=== PATIENT | male | born 2000 | race Caucasian/White ===

== ENCOUNTER 2018-11-27 10:31 | Emergency (ER) | payer SELFPAY ==
--- NOTE | 2018-11-27 11:48 | RAD REPORT ---
EXAM DESCRIPTION: RAD - Ankle Right 3 View - 11/27/2018 11:38 am CLINICAL HISTORY: Trauma, ankle pain COMPARISON: None. FINDINGS: No fracture, dislocation or periosteal reaction. No joint effusion seen. No joint space na rrowing. No soft tissue abnormality. IMPRESSION: Negative right ankle
--- NOTE | 2018-11-27 11:49 | RAD REPORT ---
EXAM DESCRIPTION: RAD - Foot Right 3 View - 11/27/2018 11:38 am CLINICAL HISTORY: PAIN Twisting injury to ankle and foot COMPARISON: None FINDINGS: Right ankle and right foot - multiple projections No acute fracture or dislocation is identified. Mild soft tissue swelling is present about the ankle. No aggressive marrow lesion.
--- NOTE | 2018-11-27 12:12 | ER ---
Nurse's Notes [facility] Name: Ever Sesay Age: 18 yrs Sex: Male : 2000 Arrival Date: 11/27/2018 Time: 10:32 Bed 20 Private MD: None, None Diagnosis: Pain in right foot;Sprain of ankle Presentation: 11/27 10:50 Presenting complaint: Patient states: "I rolled my foot yesterday". pt c/o right foot aa5 pain. 10:50 Transition of care: patient was not received from another setting of care. Onset of aa5 symptoms was November 2018. Risk Assessment: Do you want to hurt yourself or someone else? Patient reports no desire to harm self or others. Initial Sepsis Screen: Does the patient meet any 2 criteria? No. Patient's initial sepsis screen is negative. Does the patient have a suspected source of infection? No. Patient's initial sepsis screen is negative. Care prior to arrival: None. 10:50 Method Of Arrival: Ambulatory aa5 10:50 Acuity: MIRACLE 4 aa5 Historical: - Allergies: 10:50 No Known Allergies; aa5 - PMHx: 10:50 None; aa5 - PSHx: 10:50 hydrocele sx; aa5 - Immunization history:: Adult Immunizations up to date. - Social history:: Smoking status: Patient/guardian denies using tobacco. - Ebola Screening: : No symptoms or risks identified at this time. - Family history:: not pertinent. Screenin:50 Abuse screen: Denies threats or abuse. Denies injuries from another. Nutritional sv screening: No deficits noted. Tuberculosis screening: No symptoms or risk factors identified. Fall Risk None identified. Assessment: 10:59 General: Appears in no apparent distress. comfortable, well groomed, well developed, sv Behavior is calm, cooperative, appropriate for age. Pain: Complains of pain in dorsum of right foot Pain currently is 3 out of 10 on a pain scale. Quality of pain is described as tender, throbbing, Pain began 1 day ago. Is intermittent, episodic, Aggravated by increased activity, weight bearing, Current management - is no interventions. Neuro: Level of Consciousness is awake, alert, obeys commands, Oriented to person, place, time, situation, Moves all extremities. Full function Gait is steady. Cardiovascular: Capillary refill < 3 seconds is brisk in right toes Patient's skin is warm and dry. Pulses are 3+ in right dorsalis pedis artery. Respiratory: Respiratory effort is even, unlabored, Respiratory pattern is regular, symmetrical. Derm: Skin is pink, warm \\T\\ dry. 12:42 Reassessment: Patient appears in no apparent distress at this time. No changes from sv previously documented assessment. Patient and/or family updated on plan of care and expected duration. Pain level reassessed. Patient is alert, oriented x 3, equal unlabored respirations, skin warm/dry/pink. Vital Signs: 10:50 BP 131 / 78; Pulse 61; Resp 16 S; Temp 97.8(TE); Pulse Ox 98% on R/A; Weight 79.38 kg aa5 (R); Height 5 ft. 9 in. (175.26 cm) (R); Pain 3/10; 10:50 Body Mass Index 25.84 (79.38 kg, 175.26 cm) aa5 ED Course: 10:32 Patient arrived in ED. mr 10:32 None, None is Private Physician. mr 10:49 Michael Berman MD is Attending Physician. cristian 10:50 Kaleigh Matthews RN is Primary Nurse. sv 10:50 Patient has correct armband on for positive identification. Bed in low position. sv 10:50 Arm band placed on. sv 10:53 Triage completed. aa5 11:38 X-ray completed. Portable x-ray completed in exam room. Patient tolerated procedure mh1 well. 11:39 Foot Right 3 View XRAY In Process Unspecified. EDMS 11:39 Ankle Right 3 View XRAY In Process Unspecified. EDMS 12:10 Ortho shoe applied to right foot. ice pack applied to right foot. dh3 12:11 Hai Mckoy MD is Referral Physician. cristian 12:41 No provider procedures requiring assistance completed. Patient did not have IV access sv during this emergency room visit. Administered Medications: 12:41 Drug: Motrin 600 mg Route: PO; sv 12:41 Follow up: Response: Medication administered at discharge. sv Outcome: 12:11 Discharge ordered by . cristian 12:41 Discharged to home ambulatory, with orthoshoe sv 12:41 Condition: stable 12:41 Discharge instructions given to patient, Instructed on discharge instructions, follow up and referral plans. no drinking with medication, no driving heavy equipment, medication usage, application of orthoshoe Demonstrated understanding of instructions, follow-up care, medications, Prescriptions given X 2. 12:42 Patient left the ED. sv Signatures: Dispatcher [employer] Kaleigh Angel RN RN sv Anderson, Corey, MD MD cha Rivera, Mary mr Lucretia Lewis 1 Sheryl Evans RN RN [facility] Kamla Yan [facility]
--- NOTE | 2018-11-27 12:12 | EDPHYS ---
Physician Documentation [facility] Name: Ever Sesay Age: 18 yrs Sex: Male : 2000 Arrival Date: 11/27/2018 Time: 10:32 Bed 20 Private MD: None, None ED Physician Michael Berman HPI: 11/27 11:54 This 18 yrs old Male presents to ER via Ambulatory with complaints of Foot cristian Pain. 11:54 The patient presents with an injury, pain. The complaints affect the right foot. cristian Context: The problem was sustained. Onset: The symptoms/episode began/occurred yesterday. Modifying factors: The symptoms are alleviated by elevation of extremity, the symptoms are aggravated by weight bearing. Associated signs and symptoms: The patient has no apparent associated signs or symptoms. Severity of symptoms: At their worst the symptoms were moderate. The patient has not experienced similar symptoms in the past. Historical: - Allergies: 10:50 No Known Allergies; aa5 - PMHx: 10:50 None; aa5 - PSHx: 10:50 hydrocele sx; aa5 - Immunization history:: Adult Immunizations up to date. - Social history:: Smoking status: Patient/guardian denies using tobacco. - Ebola Screening: : No symptoms or risks identified at this time. - Family history:: not pertinent. ROS: 11:54 Constitutional: Negative for fever, chills, and weight loss, Eyes: Negative for injury, cristian pain, redness, and discharge, ENT: Negative for injury, pain, and discharge, Neck: Negative for injury, pain, and swelling, Cardiovascular: Negative for chest pain, palpitations, and edema, Respiratory: Negative for shortness of breath, cough, wheezing, and pleuritic chest pain, Abdomen/GI: Negative for abdominal pain, nausea, vomiting, diarrhea, and constipation, Back: Negative for injury and pain, : Negative for injury, bleeding, discharge, and swelling, Skin: Negative for injury, rash, and discoloration, Neuro: Negative for headache, weakness, numbness, tingling, and seizure, Psych: Negative for depression, anxiety, suicide ideation, homicidal ideation, and hallucinations, Allergy/Immunology: Negative for hives, rash, and allergies, Endocrine: Negative for neck swelling, polydipsia, polyuria, polyphagia, and marked weight changes, Hematologic/Lymphatic: Negative for swollen nodes, abnormal bleeding, and unusual bruising. 11:54 MS/extremity: Positive for decreased range of motion, pain, tenderness, of the dorsum of right foot. Exam: 11:54 Constitutional: This is a well developed, well nourished patient who is awake, alert, cristian and in no acute distress. Head/Face: Normocephalic, atraumatic. Eyes: Pupils equal round and reactive to light, extra-ocular motions intact. Lids and lashes normal. Conjunctiva and sclera are non-icteric and not injected. Cornea within normal limits. Periorbital areas with no swelling, redness, or edema. ENT: Nares patent. No nasal discharge, no septal abnormalities noted. Tympanic membranes are normal and external auditory canals are clear. Oropharynx with no redness, swelling, or masses, exudates, or evidence of obstruction, uvula midline. Mucous membranes moist. Neck: Trachea midline, no thyromegaly or masses palpated, and no cervical lymphadenopathy. Supple, full range of motion without nuchal rigidity, or vertebral point tenderness. No Meningismus. Chest/axilla: Normal chest wall appearance and motion. Nontender with no deformity. No lesions are appreciated. Cardiovascular: Regular rate and rhythm with a normal S1 and S2. No gallops, murmurs, or rubs. Normal PMI, no JVD. No pulse deficits. Respiratory: Lungs have equal breath sounds bilaterally, clear to auscultation and percussion. No rales, rhonchi or wheezes noted. No increased work of breathing, no retractions or nasal flaring. Abdomen/GI: Soft, non-tender, with normal bowel sounds. No distension or tympany. No guarding or rebound. No evidence of tenderness throughout. Back: No spinal tenderness. No costovertebral tenderness. Full range of motion. Skin: Warm, dry with normal turgor. Normal color with no rashes, no lesions, and no evidence of cellulitis. Neuro: Awake and alert, GCS 15, oriented to person, place, time, and situation. Cranial nerves II-XII grossly intact. Motor strength 5/5 in all extremities. Sensory grossly intact. Cerebellar exam normal. Normal gait. Psych: Awake, alert, with orientation to person, place and time. Behavior, mood, and affect are within normal limits. 11:54 Musculoskeletal/extremity: ROM: full active range of motion, full passive range of motion, Circulation is intact in all extremities. Compartment Syndrome exam of affected extremity: is normal. no numbness, no tingling, no sensation deficit, no palor, no weak pulses, Weight bearing: can bear weight with assistance only, limps, DVT Exam: No signs of deep vein thrombosis. negative Homans' sign noted on exam, no appreciated bluish discoloration, no erythema, no increased warmth, pain, swelling, tenderness. Vital Signs: 10:50 BP 131 / 78; Pulse 61; Resp 16 S; Temp 97.8(TE); Pulse Ox 98% on R/A; Weight 79.38 kg aa5 (R); Height 5 ft. 9 in. (175.26 cm) (R); Pain 3/10; 10:50 Body Mass Index 25.84 (79.38 kg, 175.26 cm) aa5 MDM: 10:49 Patient medically screened. [facility] 11:57 Data reviewed: vital signs, nurses notes, radiologic studies, plain films. [facility] 11/27 10:58 Order name: Foot Right 3 View XRAY; Complete Time: 11:58 11/27 10:58 Order name: Ankle Right 3 View XRAY; Complete Time: 11:58 11/27 11:58 Order name: Post-op shoe; Complete Time: 12:21 [facility] 11/27 11:58 Order name: Ice pack; Complete Time: 12:21 [facility] Administered Medications: 12:41 Drug: Motrin 600 mg Route: PO; sv 12:41 Follow up: Response: Medication administered at discharge. sv Disposition: 11/27/18 12:11 Discharged to Home. Impression: Pain in right foot, Sprain of ankle. - Condition is Stable. - Discharge Instructions: Ankle Sprain, Ankle Sprain, [id number], Ankle Pain, Foot Pain. - Prescriptions for Ibuprofen 600 mg Oral Tablet - take 1 tablet by ORAL route every 8 hours As needed take with food; 21 tablet. Tylenol- Codeine #3 300-30 mg Oral Tablet - take 2 tablets by ORAL route every 6 hours As needed; 24 tablet. - Medication Reconciliation Form, Thank You Letter, Antibiotic Education, Prescription Opioid Use, Work release form form. - Follow up: Hai Mckoy; When: 2 - 3 days; Reason: Recheck today's complaints, Continuance of care, Re-evaluation by your physician. - Problem is new. - Symptoms have improved. Signatures: Dispatcher [employer] Kaleigh Angel RN RN Michael Gordon MD MD cha Calderon, Audri RN RN aa5 Corrections: (The following items were deleted from the chart) 12:42 12:11 11/27/2018 12:11 Discharged to Home. Impression: Pain in right foot; Sprain of sv ankle. Condition is Stable. Discharge Instructions: Ankle Sprain, Ankle Sprain, [id number], Ankle Pain, Foot Pain. Prescriptions for Ibuprofen 600 mg Oral Tablet - take 1 tablet by ORAL route every 8 hours As needed take with food; 21 tablet, Tylenol-Codeine #3 300-30 mg Oral Tablet - take 2 tablets by ORAL route every 6 hours As needed; 24 tablet. and Forms are Medication Reconciliation Form, Thank You Letter, Antibiotic Education, Prescription Opioid Use. Follow up: Hai Mckoy; When: 2 - 3 days; Reason: Recheck today's complaints, Continuance of care, Re-evaluation by your physician. Problem is new. Symptoms have improved. cristian
[2018-11-27] MEDS ORDERED: IBUPROFEN 200 MG TAB PO ONE (12:14)
[2018-11-27] MEDS ORDERED: IBUPROFEN 400 MG TAB ONE (12:14)
[2018-11-27 12:46] VITALS: BP 131/78; TEMP 97.8; O2SAT 98
== END 2018-11-27 12:42 | disposition home or self-care (01) ==
LOC: ER 10:31
DX: S93.401A Sprain of unspecified ligament of right ankle, initial encounter (principal); X58.XXXA Exposure to other specified factors, initial encounter; Y93.9 Activity, unspecified; Y92.9 Unspecified place or not applicable
CPT/HCPCS: 99284

== ENCOUNTER 2019-07-06 12:55 | Emergency (ER) | payer SELFPAY ==
--- NOTE | 2019-07-06 14:06 | ER ---
Nurse's Notes [facility] Name: Ever Sesay Age: 19 yrs Sex: Male : 2000 Arrival Date: 07/06/2019 Time: 12:57 Bed 11 Private MD: Diagnosis: Influenza due to identified novel influenza A virus Presentation: 07/06 13:14 Presenting complaint: Nausea, abdominal cramping, fever, sore throat, body aches, hb chills, and headache x 2 days. On amoxicillin day 5 for mouth infection. Transition of care: patient was not received from another setting of care. Onset of symptoms was July 05, 2019. Risk Assessment: Do you want to hurt yourself or someone else? Patient reports no desire to harm self or others. Initial Sepsis Screen: Does the patient meet any 2 criteria? No. Patient's initial sepsis screen is negative. Does the patient have a suspected source of infection? No. Patient's initial sepsis screen is negative. Care prior to arrival: None. 13:14 Method Of Arrival: Ambulatory hb 13:14 Acuity: MIRACLE 4 hb Historical: - Allergies: 13:16 No Known Allergies; hb - Home Meds: 13:16 None [Active]; hb - PMHx: 13:16 None; hb - PSHx: 13:16 hydrocele sx; hb - Immunization history:: Adult Immunizations up to date. - Social history:: Smoking status: Patient/guardian denies using tobacco. - Ebola Screening: : No symptoms or risks identified at this time. Screenin:25 Abuse screen: Denies threats or abuse. Nutritional screening: No deficits noted. kl Tuberculosis screening: No symptoms or risk factors identified. Fall Risk None identified. Assessment: 14:23 General: Appears uncomfortable, well developed, well nourished, Behavior is calm, kl cooperative, Reports chills for fever for 1-2 days, feeling ill for 1-2 days. Pain: Complains of pain in generalized aches. Neuro: No deficits noted. Cardiovascular: No deficits noted. Respiratory: No deficits noted. Respiratory: Airway is patent Trachea midline Respiratory effort is even, unlabored, Respiratory pattern is regular. GI: No deficits noted. GI: No signs and/or symptoms were reported involving the gastrointestinal system. : No deficits noted. No signs and/or symptoms were reported regarding the genitourinary system. EENT: Reports difficulty swallowing since Tuesday. Derm: No deficits noted. Musculoskeletal: No deficits noted. Vital Signs: 13:13 BP 110 / 83; Pulse 88; Resp 16; Temp 98.9; Pulse Ox 98% ; Weight 79.38 kg; Height 5 ft. hb 9 in. (175.26 cm); Pain 6/10; 14:25 Pulse 82; Resp 16; Temp 99.9; Pain 4/10; kl 13:13 Body Mass Index 25.84 (79.38 kg, 175.26 cm) hb ED Course: 12:57 Patient arrived in ED. as 13:15 Triage completed. hb 13:16 Arm band placed on. hb 13:25 Pat[facility] Cheek F[facility]-C [facility]. kb 13:25 Michael Berman MD is Attending Physician. kb 14:27 Patient has correct armband on for positive identification. kl 14:27 No provider procedures requiring assistance completed. Patient did not have IV access kl during this emergency room visit. Administered Medications: 14:05 Drug: Tamiflu 75 mg Route: PO; kl 14:25 Follow up: Pulse 82 bpm; Resp 16 bpm; Temp 99.9; Pain 4/10 Adult kl Outcome: 14:05 Discharge ordered by MD. kb 14:26 Discharged to home ambulatory. kl 14:26 Condition: good 14:26 Discharge instructions given to patient, Instructed on discharge instructions, follow up and referral plans. infectiom control Demonstrated understanding of instructions, follow-up care, medications, Prescriptions given X 1. 14:28 Patient left the ED. kl Signatures: Paty Cheek FNP-C FNP-Ckb Lewis, Kimberly RN RN Torie Spangler as Flora Rangel RN RN Corrections: (The following items were deleted from the chart) 13:17 13:14 Presenting complaint: Nausea, abdominal cramping, fever, sore throat, body aches, hb chills, and headache x 2 days hb
--- NOTE | 2019-07-06 14:06 | EDPHYS ---
Physician Documentation [facility] Name: Ever Sesay Age: 19 yrs Sex: Male : 2000 Arrival Date: 07/06/2019 Time: 12:57 Bed 11 Private MD: ED Physician Michael Berman HPI: 07/06 14:22 This 19 yrs old Male presents to ER via Ambulatory with complaints of Fever, kb Cough. 14:22 The patient reports fever, that was measured at 103 degrees Fahrenheit, with an kb emergency department temperature of 98.9 degrees Fahrenheit. Onset: The symptoms/episode began/occurred yesterday. Modifying factors: there are no obvious modifying factors. Associated signs and symptoms: Pertinent positives: cough. Severity of symptoms: At their worst the symptoms were moderate in the emergency department the symptoms are unchanged. The patient has not experienced similar symptoms in the past. The patient has not recently seen a physician. Pt reports he woke up yesterday with fever of 103 and body aches. Historical: - Allergies: 13:16 No Known Allergies; hb - Home Meds: 13:16 None [Active]; hb - PMHx: 13:16 None; hb - PSHx: 13:16 hydrocele sx; hb - Immunization history:: Adult Immunizations up to date. - Social history:: Smoking status: Patient/guardian denies using tobacco. - Ebola Screening: : No symptoms or risks identified at this time. ROS: 14:23 ENT: Negative for injury, pain, and discharge, Neck: Negative for injury, pain, and kb swelling, Cardiovascular: Negative for chest pain, palpitations, and edema, Abdomen/GI: Negative for abdominal pain, nausea, vomiting, diarrhea, and constipation, Back: Negative for injury and pain, : Negative for injury, bleeding, discharge, and swelling, MS/Extremity: Negative for injury and deformity, Skin: Negative for injury, rash, and discoloration, Neuro: Negative for headache, weakness, numbness, tingling, and seizure. 14:23 Constitutional: Positive for body aches, chills, fever, malaise. 14:23 Respiratory: Positive for cough. Exam: 14:23 Constitutional: This is a well developed, well nourished patient who is awake, alert, kb and in no acute distress. Head/Face: Normocephalic, atraumatic. ENT: Nares patent. No nasal discharge, no septal abnormalities noted. Tympanic membranes are normal and external auditory canals are clear. Oropharynx with no redness, swelling, or masses, exudates, or evidence of obstruction, uvula midline. Mucous membranes moist. Neck: Trachea midline, no thyromegaly or masses palpated, and no cervical lymphadenopathy. Supple, full range of motion without nuchal rigidity, or vertebral point tenderness. No Meningismus. Chest/axilla: Normal chest wall appearance and motion. Nontender with no deformity. No lesions are appreciated. Cardiovascular: Regular rate and rhythm with a normal S1 and S2. No gallops, murmurs, or rubs. Normal PMI, no JVD. No pulse deficits. Respiratory: Lungs have equal breath sounds bilaterally, clear to auscultation and percussion. No rales, rhonchi or wheezes noted. No increased work of breathing, no retractions or nasal flaring. Abdomen/GI: Soft, non-tender, with normal bowel sounds. No distension or tympany. No guarding or rebound. No evidence of tenderness throughout. Skin: Warm, dry with normal turgor. Normal color with no rashes, no lesions, and no evidence of cellulitis. MS/ Extremity: Pulses equal, no cyanosis. Neurovascular intact. Full, normal range of motion. Neuro: Awake and alert, GCS 15, oriented to person, place, time, and situation. Cranial nerves II-XII grossly intact. Motor strength 5/5 in all extremities. Sensory grossly intact. Cerebellar exam normal. Normal gait. Vital Signs: 13:13 BP 110 / 83; Pulse 88; Resp 16; Temp 98.9; Pulse Ox 98% ; Weight 79.38 kg; Height 5 ft. hb 9 in. (175.26 cm); Pain 6/10; 14:25 Pulse 82; Resp 16; Temp 99.9; Pain 4/10; kl 13:13 Body Mass Index 25.84 (79.38 kg, 175.26 cm) hb MDM: 13:53 Patient medically screened. kb 14:21 Data reviewed: vital signs, nurses notes. Data interpreted: Pulse oximetry: on room air kb is 98 %. Interpretation: normal. Counseling: I had a detailed discussion with the patient and/or guardian regarding: the historical points, exam findings, and any diagnostic results supporting the discharge/admit diagnosis, lab results, the need for outpatient follow up, a family practitioner, to return to the emergency department if symptoms worsen or persist or if there are any questions or concerns that arise at home. 07/06 13:16 Order name: Flu; Complete Time: 13:51 hb 07/06 13:16 Order name: Strep; Complete Time: 13:52 hb 07/06 13:54 Order name: Throat Culture EDMS Administered Medications: 14:05 Drug: Tamiflu 75 mg Route: PO; kl 14:25 Follow up: Pulse 82 bpm; Resp 16 bpm; Temp 99.9; Pain 4/10 Adult kl Disposition: 07/06/19 14:05 Discharged to Home. Impression: Influenza due to identified novel influenza A virus. - Condition is Stable. - Discharge Instructions: Influenza, Adult, [id number], Viral Respiratory Infection, [id number]. - Prescriptions for Tamiflu 75 mg Oral Capsule - take 1 capsule by ORAL route every 12 hours for 5 days; 10 capsule. - Work release form, Medication Reconciliation Form, Thank You Letter, Antibiotic Education, Prescription Opioid Use form. - Follow up: Emergency Department; When: As needed; Reason: Worsening of condition. Follow up: Private Physician; When: 2 - 3 days; Reason: Recheck today's complaints, Continuance of care, Re-evaluation by your physician. Addendum: 07/08/2019 07:52 Co-signature as Attending Physician, Michael Berman MD I agree with the assessment and c perez plan of care. Signatures: Dispatcher [employer] Paty Eugene, MUNIRA-Ramón LOMBARDO-Jocelynn Jade RN RN kl Anderson, Corey, MD MD cha Baxter, Heather, RN RN Corrections: (The following items were deleted from the chart) 07/06 14:28 14:05 07/06/2019 14:05 Discharged to Home. Impression: Influenza due to identified kl novel influenza A virus. Condition is Stable. Forms are Medication Reconciliation Form, Thank You Letter, Antibiotic Education, Prescription Opioid Use. Follow up: Emergency Department; When: As needed; Reason: Worsening of condition. Follow up: Private Physician; When: 2 - 3 days; Reason: Recheck today's complaints, Continuance of care, Re-evaluation by your physician. kb
[2019-07-06] MEDS ORDERED: OSELTAMIVIR 75 MG CAP ONE (14:11)
[2019-07-06 14:37] VITALS: BP 110/83
[2019-07-06 14:39] VITALS: TEMP 99.9
[2019-07-06 14:45] VITALS: O2SAT 100
== END 2019-07-06 14:28 | disposition home or self-care (01) ==
LOC: ER 12:55
DX: J09.X2 Influenza due to identified novel influenza A virus with other respiratory manifestations (principal)
CPT/HCPCS: 87070; 87081; 87804; 99283

== ENCOUNTER 2019-11-09 17:54 | Emergency (ER) | payer BC, SELFPAY ==
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
[2019-11-09 19:07] VITALS: BP 137/79; TEMP 98.2; O2SAT 98
== END 2019-11-09 19:01 | disposition home or self-care (01) ==
LOC: ER 17:54
DX: R04.0 Epistaxis (principal); F17.210 Nicotine dependence, cigarettes, uncomplicated
CPT/HCPCS: 99283

== ENCOUNTER 2019-11-14 13:49 | Emergency (ER) | payer BC ==
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
[2019-11-15 21:23] VITALS: BP 116/76; TEMP 98.4; O2SAT 98
== END 2019-11-14 15:56 | disposition home or self-care (01) ==
LOC: ER 13:49
DX: R04.0 Epistaxis (principal)
CPT/HCPCS: 99281

== ENCOUNTER 2019-12-20 19:55 | Emergency (ER) | payer BC, OTHER ==
--- NOTE | 2019-12-20 21:21 | EDPHYS ---
Physician Documentation [facility] Name: Ever Sesay Age: 19 yrs Sex: Male : 2000 Arrival Date: 12/20/2019 Time: 19:57 Bed 28 Private MD: ED Physician Michael Berman HPI: 12/19 21:13 This 19 yrs old Male presents to ER via Ambulatory with complaints of Cough, jr8 Runny Nose. 21:13 The patient or guardian reports cough, that is intermittent, with no sputum. Onset: The jr8 symptoms/episode began/occurred gradually, 2 day(s) ago. Severity of symptoms: At their worst the symptoms were mild, in the emergency department the symptoms are unchanged. Modifying factors: The symptoms are alleviated by nothing, the symptoms are aggravated by nothing. Associated signs and symptoms: The patient has no apparent associated signs or symptoms. The patient has not experienced similar symptoms in the past. The patient has not recently seen a physician. Stated that his aunt recently had to be tested by health department for COVID-19. Stated that he thought she had tested positive. Stated that he started to have mild runny nose and cough. Denies fevers or other symptoms . Historical: - Allergies: 20:02 No Known Allergies; ll1 - PMHx: 20:02 migrianes; ll1 - PSHx: 20:39 hydrocele; sg - Immunization history:: Flu vaccine is not up to date. - Social history:: Smoking status: unknown. ROS: 21:13 Eyes: Negative for injury, pain, redness, and discharge, Neck: Negative for injury, jr8 pain, and swelling, Cardiovascular: Negative for chest pain, palpitations, and edema, Abdomen/GI: Negative for abdominal pain, nausea, vomiting, diarrhea, and constipation, Back: Negative for injury and pain, MS/Extremity: Negative for injury and deformity, Skin: Negative for injury, rash, and discoloration, Neuro: Negative for headache, weakness, numbness, tingling, and seizure. 21:13 ENT: Positive for rhinorrhea. 21:13 Respiratory: Positive for cough, Negative for dyspnea on exertion, shortness of breath, sputum production, wheezing. Exam: 21:13 Constitutional: This is a well developed, well nourished patient who is awake, alert, jr8 and in no acute distress. Eyes: Pupils equal round and reactive to light, extra-ocular motions intact. Lids and lashes normal. Conjunctiva and sclera are non-icteric and not injected. Cornea within normal limits. Periorbital areas with no swelling, redness, or edema. ENT: Nares patent. No nasal discharge, no septal abnormalities noted. Tympanic membranes are normal and external auditory canals are clear. Oropharynx with no redness, swelling, or masses, exudates, or evidence of obstruction, uvula midline. Mucous membranes moist. Neck: Trachea midline, no thyromegaly or masses palpated, and no cervical lymphadenopathy. Supple, full range of motion without nuchal rigidity, or vertebral point tenderness. No Meningismus. Cardiovascular: Regular rate and rhythm with a normal S1 and S2. No gallops, murmurs, or rubs. Normal PMI, no JVD. No pulse deficits. Respiratory: Lungs have equal breath sounds bilaterally, clear to auscultation and percussion. No rales, rhonchi or wheezes noted. No increased work of breathing, no retractions or nasal flaring. Abdomen/GI: Soft, non-tender, with normal bowel sounds. No distension or tympany. No guarding or rebound. No evidence of tenderness throughout. Back: No spinal tenderness. No costovertebral tenderness. Full range of motion. Skin: Warm, dry with normal turgor. Normal color with no rashes, no lesions, and no evidence of cellulitis. MS/ Extremity: Pulses equal, no cyanosis. Neurovascular intact. Full, normal range of motion. Neuro: Awake and alert, GCS 15, oriented to person, place, time, and situation. Cranial nerves II-XII grossly intact. Motor strength 5/5 in all extremities. Sensory grossly intact. Cerebellar exam normal. Normal gait. Vital Signs: 20:00 BP 122 / 77; Pulse 65; Resp 18; Temp 98.1; Pulse Ox 98% ; Weight 86.18 kg; Height 5 ft. ll1 9 in. (175.26 cm); Pain 0/10; 21:10 BP 119 / 70; Pulse 62; Resp 18; Pulse Ox 100% ; rr5 21:45 BP 121 / 75; Pulse 60; Resp 17; Temp 97.8; Pulse Ox 99% on R/A; rr5 20:00 Body Mass Index 28.06 (86.18 kg, 175.26 cm) ll1 MDM: 20:06 Patient medically screened. jr8 21:13 Data reviewed: vital signs, nurses notes, lab test result(s), Flu: negative strep jr8 negative. Data interpreted: Pulse oximetry: on room air is 98 %. Interpretation: normal. Counseling: I had a detailed discussion with the patient and/or guardian regarding: the historical points, exam findings, and any diagnostic results supporting the discharge/admit diagnosis, lab results, the need for outpatient follow up, a family practitioner, to return to the emergency department if symptoms worsen or persist or if there are any questions or concerns that arise at home. ED course: Discussed with patient hat we will swab him for COVID-19. That he must remain in quarantine for 14 days or until proven with results that he is negative. If at any point and time he were to acutely worsen to come back to ED for further evaluation. Patient understands and will self quarantine. . 12/19 20:06 Order name: Strep; Complete Time: 21:13 jr8 12/19 20:06 Order name: Influenza Screen (a \T\ B); Complete Time: 21:13 jr8 12/19 20:56 Order name: Throat Culture EDND 12/19 21:13 Order name: Misc. Lab Test jr8 Administered Medications: No medications were administered Disposition: 12/20 12:04 Co-signature as Attending Physician, Michael Berman MD I agree with the assessment and cristian plan of care. Disposition: 12/20/19 21:20 Discharged to Home. Impression: Cough, Acute upper respiratory infection, unspecified. - Condition is Stable. - Discharge Instructions: Upper Respiratory Infection, Adult, Cough, Adult. - Medication Reconciliation Form, Thank You Letter, Antibiotic Education, Prescription Opioid Use, Work release form form. - Follow up: Private Physician; When: As needed; Reason: Recheck today's complaints, Continuance of care, Re-evaluation by your physician. - Problem is new. - Symptoms are unchanged. Signatures: Dispatcher [employer] EDND Hai Ely RN RN sg Anderson, Corey, MD MD cha Roszak, Josh, PA PA jr8 Colton Ray RN RN rr5 Chen Graf RN RN ll1 Corrections: (The following items were deleted from the chart) 12/19 21:20 21:20 12/20/2019 21:20 Discharged to Home. Impression: Cough. Condition is Stable. jr8 Forms are Medication Reconciliation Form, Thank You Letter, Antibiotic Education, Prescription Opioid Use. Follow up: Private Physician; When: As needed; Reason: Recheck today's complaints, Continuance of care, Re-evaluation by your physician. Problem is new. Symptoms are unchanged. jr8 21:21 21:13 ED course: Discussed with patient hat we will swab him for COVID-19. That he must jr8 remain in quarantine for 14 days or until proven with results that he is negative. Patient understands and will self quarantine . jr8 21:49 21:20 12/20/2019 21:20 Discharged to Home. Impression: Cough; Acute upper respiratory rr5 infection, unspecified. Condition is Stable. Discharge Instructions: Cough, Adult. Forms are Medication Reconciliation Form, Thank You Letter, Antibiotic Education, Prescription Opioid Use. Follow up: Private Physician; When: As needed; Reason: Recheck today's complaints, Continuance of care, Re-evaluation by your physician. Problem is new. Symptoms are unchanged. jr8
--- NOTE | 2019-12-20 21:21 | ER ---
Nurse's Notes [facility] Name: Ever Sesay Age: 19 yrs Sex: Male : 2000 Arrival Date: 12/20/2019 Time: 19:57 Bed 28 Private MD: Diagnosis: Cough;Acute upper respiratory infection, unspecified Presentation: 12/19 20:00 Chief complaint: Patient states: Slight cough and sneezing for 3 days. No known fever. ll1 Aunt diagnosed with COVID19. Work wants clearance before he goes back. Coronavirus screen: The patient has NOT traveled to a country currently being monitored by the CDC within the last 14 days. Ebola Screen: Patient denies travel to an Ebola-affected area in the 21 days before illness onset. Risk Assessment: Do you want to hurt yourself or someone else? Patient reports no desire to harm self or others. 20:00 Method Of Arrival: Ambulatory ll1 20:00 Acuity: MIRACLE 4 ll1 20:31 Initial Sepsis Screen: Does the patient meet any 2 criteria? No. Patient's initial rr5 sepsis screen is negative. Does the patient have a suspected source of infection? Yes: Productive cough/pneumonia. Onset of symptoms was December 17, 2019. Historical: - Allergies: 20:02 No Known Allergies; ll1 - PMHx: 20:02 migrianes; ll1 - PSHx: 20:39 hydrocele; sg - Immunization history:: Flu vaccine is not up to date. - Social history:: Smoking status: unknown. Screenin:26 Abuse screen: Denies threats or abuse. Denies injuries from another. Nutritional rr5 screening: No deficits noted. Tuberculosis screening: No symptoms or risk factors identified. Fall Risk None identified. Total De La Paz Fall Scale indicates No Risk (0-24 pts). Assessment: 20:10 General: Appears in no apparent distress. comfortable, Behavior is calm, cooperative, rr5 anxious. Pain: Denies pain. Neuro: Level of Consciousness is awake, alert, obeys commands, Oriented to person, place, time, situation, Appropriate for age. Cardiovascular: Capillary refill < 3 seconds Patient's skin is warm and dry. Respiratory: Reports cough that is allergic Airway is patent Respiratory effort is even, unlabored, Respiratory pattern is regular, symmetrical, Breath sounds are clear bilaterally. GI: No signs and/or symptoms were reported involving the gastrointestinal system. : No signs and/or symptoms were reported regarding the genitourinary system. EENT: Derm: Skin is intact, is healthy with good turgor, Skin temperature is warm. Musculoskeletal: Circulation, motion, and sensation intact. Capillary refill < 3 seconds. 20:30 Reassessment: Slime Woodard RN notified of pt and situation, Infection Control Nurse sp Callejas RN notified, [facility] notified a Reyes Jean has been in contact with nc, instructed that he will contact the [facility] for a PUI case number and to wait for a call back. 21:04 Reassessment: Robby RUFFIN notified of instructions at this time, pt awaiting new orders, sg will continue to monitor. 22:00 Reassessment: Reyes Jean called back with a PUI case number of [id number], sp Callejas RN with infection control notified, outside lab for specimen handling notified of case number, PUI form has been filled out appropriatley and placed on the patients chart at this time. Vital Signs: 20:00 BP 122 / 77; Pulse 65; Resp 18; Temp 98.1; Pulse Ox 98% ; Weight 86.18 kg; Height 5 ft. ll1 9 in. (175.26 cm); Pain 0/10; 21:10 BP 119 / 70; Pulse 62; Resp 18; Pulse Ox 100% ; rr5 21:45 BP 121 / 75; Pulse 60; Resp 17; Temp 97.8; Pulse Ox 99% on R/A; rr5 20:00 Body Mass Index 28.06 (86.18 kg, 175.26 cm) ll1 ED Course: 19:57 Patient arrived in ED. cl3 20:02 Triage completed. ll1 20:02 Arm band placed on Patient placed in an exam room. ll1 20:03 Chen Graf, MAGEN is Primary Nurse. ll1 20:06 Robby Peacock PA is PHCP. jr8 20:06 Michael Berman MD is Attending Physician. jr8 20:09 Colton Ray, MAGEN is Primary Nurse. rr5 20:24 Flu and/or RSV swab sent to lab. Strep swab sent to lab. rr5 20:26 Patient has correct armband on for positive identification. Bed in low position. Call rr5 light in reach. Pulse ox on. NIBP on. 21:45 No provider procedures requiring assistance completed. covid 19 swab sent. Patient did rr5 not have IV access during this emergency room visit. Administered Medications: No medications were administered Outcome: 21:20 Discharge ordered by . gisella 21:47 Discharged to home ambulatory. rr5 21:47 Condition: stable 21:47 Discharge instructions given to patient, Instructed on discharge instructions, follow up and referral plans. self quarantine for 14 days or when the test result negative Demonstrated understanding of instructions, follow-up care. 21:49 Patient left the ED. rr5 Addendum: 12/22/2019 10:09 Addendum: Other Pt test 2019-nCoV wildlife officer-PCR results received from [place] [address] Department. Attempted to contact pt to give results. Pt did not answer phone. I left a message for pt to call me back. 11:00 Addendum: Other pt notified of negative COVID-19 results. [facility] Signatures: Unique Kruse, RN RN dm5 Hai Ely RN RN sg Robby Peacock PA PA jr8 Colton Ray RN RN rr5 Norm Graf cl3 Chen Graf, RN RN ll1 Corrections: (The following items were deleted from the chart) 12/19 21:10 21:04 Reassessment: Slime Woodard RN notified of pt and situation, Infection Control Nurse Britta US notified, [facility] notified a Reyes Jean has been in contact with me, instructed that he will contact the [facility] health dept for a PUI case number and to wait for a call back. sg
[2019-12-20 22:19] VITALS: BP 121/75; TEMP 97.8; O2SAT 99
== END 2019-12-20 21:49 | disposition home or self-care (01) ==
LOC: ER 19:55
DX: J06.9 Acute upper respiratory infection, unspecified (principal); Z20.828 Contact with and (suspected) exposure to other viral communicable diseases
CPT/HCPCS: 87070; 87081; 87804 ×2; 99283; U0001

== ENCOUNTER 2022-11-08 01:35 | Emergency (ER) | payer BC ==
--- OUTSIDE RECORDS SUMMARY | 2022-11-08 01:39 | XMS REPORT | Continuity of Care Document ---
:2000 Author Organization [facility] t Address [address] [place] [address] Dr. Val[address]. [address] [place] [address] Care Team Providers Name Role Phone Pcp, Patient Does Not Have A Primary Care Physician [id number] L_[place] Attending Clinician Unavailable Shield Attending Clinician Unavailable Doctor Unassigned, [place] Attending Clinician Unavailable Fransisco Baig Attending Clinician Yessy Anton RN Attending Clinician Unavailable Lab, Adc Fam Pob I Attending Clinician Unavailable Isha Alanis Attending Clinician ISHA GARSIA Attending Clinician Unavailable Lab, Pcp Covid Attending Clinician Unavailable L_[place] Admitting Clinician Unavailable Shield Admitting Clinician Unavailable Payers Payer Name Policy Type Policy Number Effective Date Expiration Date S dionte [facility] [place] [facility] [id number] 2019 00:00:00 [facility] [id number] [place] Problems Condition Condition Condition Status Onset Resolution Last Treating Co mments Source Name Details Category Date Date Treatment Clinician Date No known No known Disease Unive rs active active ity of problems problems [facility] Allergies, Adverse Reactions, Alerts Allergy Allergy Status Severity Reaction(s) Onset Inactive Treating Comm ents Source Name Type Date Date Clinician NO KNOWN Drug Active Univers ALLERGIE Class ity of S [facility] Social History Social Habit Start Date Stop Date Quantity Comments Source History of tobacco Chews Tobacco Uni versity of use [facility] Exposure to Not sure University SARS-CoV-2 (event) [facility] Alcohol intake 2021-01-11 2021-01-11 0 /d University of 00:00:00 00:00:00 [facility] Cigarettes smoked 2015-10-30 2015-10-30 Univers ity of current (pack per 00:00:00 00:00:00 [facility] ) - Reported Branch Cigarette 2015-10-30 2015-10-30 University of pack-years 00:00:00 00:00:00 [facility] Tobacco use and 2015-10-30 2015-10-30 Current user Univers ity of exposure 00:00:00 00:00:00 [facility] Sex Assigned At [birth year] Universit y of 00:00:00 00:00:00 [facility] Smoking Status Start Date Stop Date Source Never Smoker [facility] Former smoker 2015-10-30 00:00:00 2015-10-30 00:00:00 [facility] Medications Ordered Filled Start Stop Current Ordering Indication Dosage Frequency Signature Comments Components Source Medication Medication Date Date Medication? Clinician (SIG) Name Name ketorolac No 60mg 60 mg, Unive rs (TORADOL) 01-12 Intramuscu ity of injection 03:15: 03:15 lar, ONCE, [place] 60 mg 00 :00 1 dose, [facility] [place] 01/11/21 at 2215, EMILEE
Fa culty member approving Restricted medication : Fransisco ARTIS naproxen Yes [id number] 500mg Take 1 Univers (NAPROSYN) 4-11 [id number] tablet by it y of 500 mg 00:00: mouth 2 [place] tablet 00 (two) Medical times Branch daily with meals. acetaminoph Yes [id number] 1{tbl} Take 1 Un antoinette en-codeine 4-11 tablet by ity of (TYLENOL-CO 00:00: mouth [place] DEINE #3) 00 every 4 Medical 300-30 mg (four) Branch tablet hours as needed for Pain (scale 7-10). Indication s: acute pain naproxen Yes [id number] 500mg Take 1 Univers (NAPROSYN) 4-11 [id number] tablet by it y of 500 mg 00:00: mouth 2 [place] tablet 00 (two) Medical times Branch daily with meals. acetaminoph Yes 4647 1{tbl} Take 1 Un antoinette en-codeine 4-11 tablet by ity of (TYLENOL-CO 00:00: mouth [place] DEINE #3) 00 every 4 Medical 300-30 mg (four) Branch tablet hours as needed for Pain (scale 7-10). Indication s: acute pain No known No [facility] No [facility] No known No [facility] No known No [facility] No known No [facility] No known No Univers [facility] No known No [facility] No known No Univers medications [facility] Vital Signs Vital Name Observation Time Observation Value Comments Source Body Weight 2022-03-22 00:00:00 2857.6 [oz_av] [facility] BP Diastolic 2022-03-22 00:00:00 80 mm[Hg] [facility] Height 2022-03-22 00:00:00 69 [in_i] [facility] BMI (Body Mass 2022-03-22 00:00:00 26.4 kg/m2 [facility] Group BP Systolic 2022-03-22 00:00:00 120 mm[Hg] [facility] Body weight 2021-01-12 02:07:00 77.111 kg General acute hospital Systolic blood 2021-01-12 01:59:00 157 mm[Hg] Univer sity [facility] Diastolic blood 2021-01-12 01:59:00 80 mm[facility]Hg[facility] 2021-01-12 01:59:00 74 /min General acute hospital Body temperature 2021-01-12 01:59:00 37.11 Gianna [facility] Respiratory rate 2021-01-12 01:59:00 20 /min [facility] Oxygen saturation in 2021-01-12 01:59:00 98 /min [facility] Arterial blood by [facility] Pulse oximetry Branch Procedures Procedure Date / Time Performing Clinician Source Performed AUTHORIZATION FOR 2022-03-10 05:01:00 Doctor Unassigned, [facility] Name Medical Branch XR ANKLE 3+ VW LEFT 2021-01-12 02:25:54 Fransisco Artis [facility] ty of [facility] XR FOOT 3+ VW LEFT 2021-01-12 02:25:54 Fransisco Artis [facility] y [facility] CONSENT/REFUSAL FOR 2021-01-12 01:50:49 Doctor Unassigned, No [facility] NOTICE OF PRIVACY 2021-01-12 01:50:39 Doctor Unassigned, No Univ [facility] PATIENT QUESTIONNAIRE 2020-06-11 05:01:00 Doctor Unassigned, No [facility] Encounters Start End Encounter Admission Attending Care Care Encounter Source Date/Time Date/Time Type Type Clinicians Facility Department ID 2021-08-02 Emergency [facility] [id number] Univers 12:07:06 ity of [facility] 2022-10-19 2022-10-19 Outpatient L_Pena [facility] [id number] [place] 00:00:00 00:00:00 0117 Commun i ty [facility] 2022-10-05 2022-10-05 Outpatient SFA SFA [id number] [place] 15:58:52 15:58:52 [id number] [place] 2022-03-22 2022-03-22 Outpatient Shield [facility] [id number] [place] 09:56:00 09:56:00 0620 Medical Group 2022-03-22 2022-03-22 Abby [facility]G [place] - [id number] M atagor 00:00:00 00:00:00 [facility] 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 2022-03-10 2022-03-10 Orders Doctor MALAVE [id number] Univers 00:00:00 00:00:00 Only UnassignedMARIO [id number] [facility] [id number] Alexis as [phone] [address] 2021-01-11 2021-01-11 Emergency Fransisco Artis [facility] [id number] Univers 21:01:00 22:50:00 Jovanna Caballero [id number] i ty of [place] [id number] [place] [phone] [facility] 084 [place] 2020-06-11 2020-06-11 Rosalva MALAVE [id number] Univers 00:00:00 00:00:00 Only Unassigned, MARIO [id number] ity of [place] [facility] [id number] Alexis as [phone] [facility] 009 [place] 2020-06-05 2020-06-05 Letter ANANDA Anton [id number] Univers 00:00:00 00:00:00 (Out) Yessy MARTIN [id number] it y of [facility] [id number] Alexis as [phone] [facility] 019 [place] 2020-06-03 2020-06-03 Laboratory Lab, Adc [facility] Po I [facility] 1.2. [id number] [id number] Univers 14:00:17 14:20:17 Only Marybeth [facility] [id number] ity of [place] [id number] Alexis as Professio [phone] Ak dical nal [address] [place] [address] Office [address] 2020-06-03 2020-06-03 Outpatient R ARSLAN, [facility] [id number] Univers 14:00:00 14:00:00 ISHA ity of [facility] 2020-05-20 2020-05-20 ANANDA Voss [id number] Univers 00:00:00 00:00:00 (Out) Yessy MARTIN [id number] it y of HOSPITAL [id number] Alexis as [phone] [address] 2020-05-19 2020-05-19 Laboratory Lab, Adc Fam Pob I [facility] 1.2. 840.114 [id number] Univers 09:37:31 09:57:31 Only Arslan, Isha Health [id number] ity of [place] [id number] Alexis as Professio [phone] Ak dical nal 044 [address] 2020-05-19 2020-05-19 Outpatient R ARSLAN [facility] [id number] Univers 09:40:00 09:40:00 ISHA ity of [facility] 2020-05-19 2020-05-19 Letter Lab, Pcp [facility] [id number] Univers 00:00:00 00:00:00 (Out) Covid Health [id number] it y of [place] [id number] Alexis as Professio [phone] Ak dical nal [address] [place] [address] 2020-04-14 2020-04-14 Laboratory Lab, Adc Fam Pob I [facility] 1.2. 840.114 [id number] Univers 14:18:11 14:38:11 Only Isha Garsia Health [id number] ity of [place] [id number] Alexis as Professio [phone] [facility] nal 0[address] [place] Office [address] 2020-04-14 2020-04-14 Outpatient R [facility] [id number] Univers 14:20:00 14:20:00 ity of [facility] 2020-04-14 2020-04-14 Letter Doctor ANANDA 1.2.840.114 [id number] Univers 00:00:00 00:00:00 (Out) Unassigned, MARIO [id number] ity of [place] [facility] [id number] Alexis as [phone] [address] Results This patient has no known results.
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
[2022-11-08] MEDS ORDERED: AMOX/K CLAV 875 MG TAB ONE (02:10)
[2022-11-08] MEDS ORDERED: HYDROCODONE/APAP 7.5/325 MG TAB ONE (02:10)
[2022-11-08] MEDS ORDERED: ACETAMINOPHEN 325 MG TABLET ONE (02:10)
[2022-11-08 02:30] VITALS: BP 134/96; TEMP 98.7; O2SAT 99
== END 2022-11-08 02:23 | disposition home or self-care (01) ==
LOC: ER 01:35
DX: K08.89 Other specified disorders of teeth and supporting structures (principal)
CPT/HCPCS: 99283

== ENCOUNTER 2022-11-27 21:18 | Emergency (ER) | payer BC ==
--- OUTSIDE RECORDS SUMMARY | 2022-11-27 21:21 | XMS REPORT | Continuity of Care Document ---
:2000 Author Organization [facility] t Address [address] [place] [address] Dr. Val[address] [place] [address] Care Team Providers Name Role Phone Pcp, Patient Does Not Have A Primary Care Physician [phone] L_[place] Attending Clinician Unavailable Shield Attending Clinician Unavailable Doctor Unassigned, [place] Attending Clinician Unavailable Fransisco Baig Attending Clinician Yessy Anton RN Attending Clinician Unavailable Lab, Adc Fam Pob I Attending Clinician Unavailable Isha Alanis Attending Clinician ISHA GARSIA Attending Clinician Unavailable Lab, Pcp Covid Attending Clinician Unavailable L_[place] Admitting Clinician Unavailable Shield Admitting Clinician Unavailable Payers Payer Name Policy Type Policy Number Effective Date Expiration Date S dionte [facility] [id number] 2019 00:00:00 [facility] [place] [id number] [place] Problems Condition Condition Condition Status Onset Resolution Last Treating Co mments Source Name Details Category Date Date Treatment Clinician Date No known No known Disease Unive rs active active ity of problems problems [facility] Allergies, Adverse Reactions, Alerts Allergy Allergy Status Severity Reaction(s) Onset Inactive Treating Comm ents Source Name Type Date Date Clinician NO KNOWN Drug Active Univers ALLERGIE Class ity of S [facility] Social History Social Habit Start Date Stop Date Quantity Comments Source History of tobacco Chews Tobacco Uni versity of use [facility] Exposure to Not sure University SARS-CoV-2 (event) [facility] Alcohol intake 2021-01-11 2021-01-11 0 /d University of 00:00:00 00:00:00 [facility] Cigarettes smoked 2015-10-30 2015-10-30 Univers ity of current (pack per 00:00:00 00:00:00 [facility] ) - Reported Branch Cigarette 2015-10-30 2015-10-30 University of pack-years 00:00:00 00:00:00 [facility] Tobacco use and 2015-10-30 2015-10-30 Current user Univers ity of exposure 00:00:00 00:00:00 [facility] Sex Assigned At [birth year] Universit y of 00:00:00 00:00:00 [facility] Smoking Status Start Date Stop Date Source Never Smoker [facility] Former smoker 2015-10-30 00:00:00 2015-10-30 00:00:00 [facility] Medications Ordered Filled Start Stop Current Ordering Indication Dosage Frequency Signature Comments Components Source Medication Medication Date Date Medication? Clinician (SIG) Name Name ketorolac No 60mg 60 mg, Unive rs (TORADOL) 01-12 Intramuscu ity of injection 03:15: 03:15 lar, ONCE, [place] 60 mg 00 :00 1 dose, [facility] [place] 01/11/21 at 2215, EMILEE
Fa culty member approving Restricted medication : Fransisco ARTIS naproxen Yes [id number] 500mg Take 1 Univers (NAPROSYN) 4-11 [id number] tablet by it y of 500 mg 00:00: mouth 2 [place] tablet 00 (two) Medical times Branch daily with meals. acetaminoph Yes [id number] 1{tbl} Take 1 Un antoinette en-codeine 4-11 tablet by ity of (TYLENOL-CO 00:00: mouth [place] DEINE #3) 00 every 4 Medical 300-30 mg (four) Branch tablet hours as needed for Pain (scale 7-10). Indication s: acute pain naproxen Yes [id number] 500mg Take 1 Univers (NAPROSYN) 4-11 [id number] tablet by it y of 500 mg [...] acute pain No known No [facility] No [facility] No known No Univers medications [facility] No known No Univers medications [facility] No known No Univers medications [facility] No known No Univers medications [facility] No known No [facility] medications [facility] No known No Univers medications [facility] Vital Signs Vital Name Observation Time Observation Value Comments Source Height 2022-03-22 00:00:00 69 [in_i] [facility] BMI (Body Mass 2022-03-22 00:00:00 26.4 kg/m2 [facility]) Group BP Systolic 2022-03-22 00:00:00 120 mm[Hg] [facility] Body Weight 2022-03-22 00:00:00 2857.6 [oz_av] [facility] BP Diastolic 2022-03-22 00:00:00 80 mm[Hg] [facility] Body weight 2021-01-12 02:07:00 77.111 kg [facility] Systolic blood 2021-01-12 01:59:00 157 mm[Hg] Univer sity of [facility] Diastolic blood 2021-01-12 01:59:00 80 mm[Hg] [facility] 2021-01-12 01:59:00 74 /min [facility] Body temperature 2021-01-12 01:59:00 37.11 Gianna [facility] Respiratory rate 2021-01-12 01:59:00 20 /min General acute hospital Oxygen saturation in 2021-01-12 01:59:00 98 /min [facility] Arterial blood by [facility] Pulse oximetry Branch Procedures Procedure Date / Time Performing Clinician Source Performed AUTHORIZATION FOR 2022-03-10 05:01:00 Doctor Unassigned, No [facility] Name Medical Branch XR ANKLE 3+ VW LEFT 2021-01-12 02:25:54 Fransisco Artis [facility] ty of [facility] XR FOOT 3+ VW LEFT 2021-01-12 02:25:54 Fransisco Artis [facility] y [facility] CONSENT/REFUSAL FOR 2021-01-12 01:50:49 Doctor Unassigned, No [facility]AT[facility] NOTICE OF PRIVACY 2021-01-12 01:50:39 Doctor Unassigned, No Univ [facility] PATIENT QUESTIONNAIRE 2020-06-11 05:01:00 Doctor Unassigned, No [facility] Encounters Start End Encounter Admission Attending Care Care Encounter Source Date/Time Date/Time Type Type Clinicians Facility Department ID 2021-08-02 Emergency [facility] [id number] Univers 12:07:06 ity of [facility] 2022-10-19 2022-10-19 Outpatient L_Pena [facility] [id number] [place] 00:00:00 00:00:00 0117 Commun i [facility] 2022-10-05 2022-10-05 Outpatient SFA SFA [id number] [place] 15:58:52 15:58:52 [id number] [place] 2022-03-22 2022-03-22 Outpatient Shield [facility] [id number] [place] 09:56:00 09:56:00 0620 Medical Group 2022-03-22 2022-03-22 Abby [facility] [place] - [id number] M atagor 00:00:00 00:00:00 [facility] [employer] 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 2022-03-10 2022-03-10 Orders Doctor MALAVE [id number] Univers 00:00:00 00:00:00 Only UnassignedMARIO [id number] [facility] [id number] Alexis as [phone] [address] 2021-01-11 2021-01-11 Emergency Fransisco Artis [facility] [id number] Univers 21:01:00 22:50:00 Jovanna Caballero [id number] i ty of [id number] [phone] [facility] [address] [place] 2020-06-11 2020-06-11 Rosalva MALAVE [id number] Univers 00:00:00 00:00:00 Only Unassigned, MARIO [id number] ity of [place] [facility] [id number] Alexis as [phone] [facility] [address] [place] 2020-06-05 2020-06-05 Letter ANANDA Anton [id number] Univers 00:00:00 00:00:00 (Out) Yessy MARTIN [id number] it y of [facility] [id number] Alexis as [phone] [facility] [address] [place] 2020-06-03 2020-06-03 Laboratory Lab, Adc [facility] Po I [facility] 1.2. [id number] Univers 14:00:17 14:20:17 Only Marybeth Gars[facility]ath[facility] [id number] ity of [place] [id number] Alexis as Professio [phone] Sd dical nal [address] [place] [address] Office Building One 2020-06-03 2020-06-03 Outpatient R ARSLAN, [facility] [id number] Univers 14:00:00 14:00:00 ISHA ity of [facility] 2020-05-20 2020-05-20 ANANDA Voss [id number] Univers 00:00:00 00:00:00 (Out) Yessy MARTIN [id number] it y of HOSPITAL [id number] Alexis as [phone] [address] 2020-05-19 2020-05-19 Laboratory Lab, Adc Fam Pob I [facility] 1.2. [id number] Univers 09:37:31 09:57:31 Only Arslan, Isha Health [id number] ity of [place] [id number] Alexis as Professio [phone] Sd dical nal [address] Office [address] 2020-05-19 2020-05-19 Outpatient R ARSLAN [facility] [id number] Univers 09:40:00 09:40:00 ISHA ity of [facility] 2020-05-19 2020-05-19 Letter Lab, Pcp [facility] [id number] Univers 00:00:00 00:00:00 (Out) Covid Health [id number] it y of [place] [id number] Alexis as Professio [phone] Sd dical nal [address] [place] Office [address] 2020-04-14 2020-04-14 Laboratory Lab, Adc Fam Pob I [facility] 1.2. 840.114 [id number] Univers 14:18:11 14:38:11 Only Isha Garsia Health [id number] ity of [place] [id number] Alexis as Professio [phone] [facility] nal [address] [place] Office [address] One 2020-04-14 2020-04-14 Outpatient R [facility] [id number] Univers 14:20:00 14:20:00 ity of [facility] 2020-04-14 2020-04-14 Letter Doctor ANANDA 1.2.840.114 [id number] Univers 00:00:00 00:00:00 (Out) Unassigned, MARIO [id number] ity of [place] [facility] [id number] Alexis as [phone] [address] Results This patient has no known results.
[2022-11-27] MEDS ORDERED: HYDROCODONE/APAP 10/325 TAB ONE (22:17)
--- NOTE | 2022-11-27 22:18 | RAD REPORT ---
EXAM DESCRIPTION: CT - Head Brain Wo Cont - 11/27/2022 10:09 pm CLINICAL HISTORY: TRAUMA COMPARISON: <Comparisons> TECHNIQUE: All CT scans are performed using dose optimization technique as appropriate and may inclu de automated exposure control or mA/KV adjustment according to patient size. FINDINGS: No intracranial hemorrhage, hydrocephalus or extra-axial fluid collection.No areas of brai n edema or evidence of midline shift. The paranasal sinuses and mastoids are clear. The calvarium is intact. IMPRESSION: No acute intracranial abnormality.
[2022-11-28] MEDS ORDERED: DERMABOND SKIN ADHESIVE TOP ONE (00:56)
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
[2022-11-28] MEDS ORDERED: TDAP (DIPHTH,PERTUSS(ACELL),TET VAC) 0.5 ML VIAL IMVAC ONE (01:12)
[2022-11-28 01:34] VITALS: TEMP 97.9; O2SAT 100
[2022-11-28 01:38] VITALS: BP 132/76
== END 2022-11-28 01:30 | disposition home or self-care (01) ==
LOC: ER 21:18
PROC: 0HQ1XZZ Repair Face Skin, External Approach (ICD-10-PCS; principal; 2022-11-28)
DX: S01.81XA Laceration without foreign body of other part of head, initial encounter (principal); S09.90XA Unspecified injury of head, initial encounter
CPT/HCPCS: 70450; 96372; 99284

== ENCOUNTER 2022-12-05 13:35 | Emergency (ER) | payer BC ==
--- OUTSIDE RECORDS SUMMARY | 2022-12-05 13:38 | XMS REPORT | Continuity of Care Document ---
:2000 Author Organization [facility] t Address [address] [facility] [address] [place] [address] Care Team Providers Name Role Phone Pcp, Patient Does Not Have A Primary Care Physician [id number] L_Anthony Attending Clinician Unavailable Shield Attending Clinician Unavailable Doctor Unassigned, [place] Attending Clinician Unavailable Fransisco Baig Attending Clinician Desean US, Yessy Morton Attending Clinician Unavailable Lab, Adc Fam Pob I Attending Clinician Unavailable Isha Alanis Attending Clinician ISHA GARSIA Attending Clinician Unavailable Lab, Pcp Covid Attending Clinician Unavailable Danielle Admitting Clinician Unavailable Shield Admitting Clinician Unavailable Payers Payer Name Policy Type Policy Number Effective Date Expiration Date S dionte [facility] [id number] 2019 00:00:00 [facility] LIZELLA [id number] [facility] Problems Condition Condition Condition Status Onset Resolution Last Treating Co mments Source Name Details Category Date Date Treatment Clinician Date No known No known Disease Unive rs active active ity of problems problems [facility] Allergies, Adverse Reactions, Alerts Allergy Allergy Status Severity Reaction(s) Onset Inactive Treating Comm ents Source Name Type Date Date Clinician NO KNOWN Drug Active Univers ALLERGIE Class ity of S [facility] Social History Social Habit Start Date Stop Date Quantity Comments Source History of tobacco Chews Tobacco Uni versity of use [facility] Exposure to Not sure University SARS-CoV-2 (event) [facility] Alcohol intake 2021-01-11 2021-01-11 0 /d University of 00:00:00 00:00:00 [facility] Cigarettes smoked 2015-10-30 2015-10-30 Univers ity of current (pack per 00:00:00 00:00:00 ) - Reported Branch Cigarette 2015-10-30 2015-10-30 University of pack-years 00:00:00 00:00:00 [facility] Tobacco use and 2015-10-30 2015-10-30 Current user Univers ity of exposure 00:00:00 00:00:00 [facility] Sex Assigned At [birth year] Universit y of 00:00:00 00:00:00 [facility] Smoking Status Start Date Stop Date Source Never Smoker [facility] Former smoker 2015-10-30 00:00:00 2015-10-30 00:00:00 [facility] Medications Ordered Filled Start Stop Current Ordering Indication Dosage Frequency Signature Comments Components Source Medication Medication Date Date Medication? Clinician (SIG) Name Name ketorolac No 60mg 60 mg, Unive rs (TORADOL) 01-12 Intramuscu ity of injection 03:15: 03:15 lar, ONCE, [place] 60 mg 00 :00 1 dose, Medical [place] 01/11/21 at 2215, EMILEE
Fa culty member approving Restricted medication : Fransisco [place] naproxen Yes [id number] 500mg Take 1 Univers (NAPROSYN) 4-11 [id number] tablet by it y of 500 mg 00:00: mouth 2 [place] tablet 00 (two) Medical times Branch daily with meals. acetaminoph Yes [id number] 1{tbl} Take 1 Un antoinette en-codeine 4-11 tablet by ity of (TYLENOL-CO 00:00: mouth [place] DEINE #3) 00 every 4 Medical 300-30 mg (four) Branch tablet hours as needed for Pain (scale 7-10). Indication s: acute pain naproxen Yes [id number] 500mg Take 1 Univers (NAPROSYN) 4-11 [id number] tablet by it y of 500 mg [...] acute pain No known No Univers medications [facility] No known No [facility] No known No Univers medications [facility] No known No Univers medications [facility] No known No Univers medications [facility] No known No Univers medications [facility] No known No Univers medications [facility] No known No Univers medications [facility] Vital Signs Vital Name Observation Time Observation Value Comments Source Body Weight 2022-03-22 00:00:00 2857.6 [oz_av] [facility] BP Diastolic 2022-03-22 00:00:00 80 mm[Hg] [facility] Height 2022-03-22 00:00:00 69 [in_i] [facility] BMI (Body Mass 2022-03-22 00:00:00 26.4 kg/m2 [facility]) Group BP Systolic 2022-03-22 00:00:00 120 mm[Hg] [facility] Body weight 2021-01-12 02:07:00 77.111 kg General acute hospital Systolic blood 2021-01-12 01:59:00 157 mm[Hg] Univer sity [facility] Diastolic blood 2021-01-12 01:59:00 80 mm[facility]Hg[facility] 2021-01-12 01:59:00 74 /min General acute hospital Body temperature 2021-01-12 01:59:00 37.11 Gianna [facility] Respiratory rate 2021-01-12 01:59:00 20 /min [facility] Oxygen saturation in 2021-01-12 01:59:00 98 /min [facility] Arterial blood by [facility] Pulse oximetry Branch Procedures Procedure Date / Time Performing Clinician Source Performed AUTHORIZATION FOR 2022-03-10 05:01:00 Doctor Unassigned, No Univ [facility] RELEASE OF PHI Name Medical Branch XR ANKLE 3+ VW LEFT 2021-01-12 02:25:54 Fransisco Austin [facility] ty [facility] XR FOOT 3+ VW LEFT 2021-01-12 02:25:54 Fransisco Austin [facility] y [facility] CONSENT/REFUSAL FOR 2021-01-12 01:50:49 Doctor Unassigned, No [facility] DIAGNOSIS AND TREATMENT [facility] NOTICE OF PRIVACY 2021-01-12 01:50:39 Doctor Unassigned, No [facility] Name [facility] PATIENT QUESTIONNAIRE 2020-06-11 05:01:00 Doctor Unassigned, No [facility] Encounters Start End Encounter Admission Attending Care Care Encounter Source Date/Time Date/Time Type Type Clinicians Facility Department ID 2021-08-02 Emergency [facility] [id number] Univers 12:07:06 ity of [facility] 2022-10-19 2022-10-19 Outpatient L_Pena [facility] [id number] [facility] 00:00:00 00:00:00 0117 [facility] 2022-10-05 2022-10-05 Outpatient SFA SFA [id number] Angelo 15:58:52 15:58:52 [id number] F Saad 2022-03-22 2022-03-22 Outpatient Shield [facility] [id number] [place] 09:56:00 09:56:00 0620 Medical Group 2022-03-22 2022-03-22 Abby [facility] [place] - [id number] M atagor 00:00:00 00:00:00 [facility] BELT BACK OPERATOR: [address] [facility] [address], [place] [address] , Ph. 2022-03-10 2022-03-10 Orders Doctor AMLAVE 1.2.840.114 [id number] [facility] 00:00:00 00:00:00 Only Unassigned, MARIO [id number] ity of [place] [facility] [id number] Alexis as [phone] [address] 2021-01-11 2021-01-11 Emergency Fransisco Austin [facility] [id number] Univers 21:01:00 22:50:00 Jovannasuleiman [place] [id number] i ty of [place] [id number] [facility] [phone] [facility] [address] [place] 2020-06-11 2020-06-11 Orders Doctor ANANDA 1.2.840.114 [id number] Univers 00:00:00 00:00:00 Only Unassigned, MARIO [id number] ity of [place] [facility] [phone] [facility] [address] [place] 2020-06-05 2020-06-05 ANANDA [place] [id number] Univers 00:00:00 00:00:00 (Out) Yessy MARTIN [id number] it y of [facility] [phone] [facility] [address] [place] 2020-06-03 2020-06-03 Laboratory Lab, Adc [facility] I [facility] 1.2. 840.114 [id number] Univers 14:00:17 14:20:17 Only Brindalaura Isha Health [id number] ity of [place] [id number] Alexis as Professio [phone] [address] Office Building One 2020-06-03 2020-06-03 Outpatient R [facility]LAN [facility] [id number] Univers 14:00:00 14:00:00 ISHA ity of [facility] 2020-05-20 2020-05-20 ANANDA [place] 1.2.840.114 [id number] Univers 00:00:00 00:00:00 (Out) Yessy MARTIN [id number] it y of HOSPITAL [id number] Alexis as [phone] [address] 2020-05-19 2020-05-19 Laboratory Lab, Adc Fam Pob I [facility] 1.2. 840.114 [id number] Univers 09:37:31 09:57:31 Only Arslan, Isha Health [id number] ity of [place] [id number] Alexis as Professio [phone] Nd dical nal 044 Branch Office [address] One 2020-05-19 2020-05-19 Outpatient R A[facility]LAN [facility] [id number] Univers 09:40:00 09:40:00 ISHA ity of [facility] 2020-05-19 2020-05-19 Letter Lab, Pcp [facility] [id number] Univers 00:00:00 00:00:00 (Out) Covid Health [id number] it y of [place] [id number] Alexis as Professio [phone] Nd dical nal 044 Branch Office [address] One 2020-04-14 2020-04-14 Laboratory Lab, Adc Fam Pob I [facility] 1.2. 840.114 [id number] Univers 14:18:11 14:38:11 Only Isha Garsia [facility] [id number] ity of [place] [id number] Alexis as Professio [phone] Nd dical nal 044 Branch Office [address] One 2020-04-14 2020-04-14 Outpatient R [facility] [id number] Univers 14:20:00 14:20:00 ity of [facility] 2020-04-14 2020-04-14 Letter Doctor ANANDA 1.2.840.114 [id number] Univers 00:00:00 00:00:00 (Out) Unassigned, MARIO [id number] ity of [place] [facility] [id number] Alexis as [phone] [address] Results This patient has no known results.
--- NOTE | 2022-12-05 14:09 | EDPHYS ---
Physician Documentation [facility] Name: Ever Sesay Age: 22 yrs Sex: Male : 2000 Arrival Date: 12/05/2022 Time: 13:37 Bed IW1 Private MD: ED Physician Binu Guallpa HPI: 12/05 14:06 This 22 yrs old Male presents to ER via Ambulatory with complaints of Staple cp Removal. 14:06 The patient has antonietta on the scalp. Previous treatment: The patient was initially cp treated about 1 week ago, the care was rendered at [facility], Treatment type: The patient's original treatment included antonietta. Sutures/antonietta progress: The patient has no c/o's. The wound is well-healing with no redness, swelling, discharge, or dehiscence reported. Historical: - Allergies: 14:02 No Known Allergies; vg1 - Immunization history:: Client reports having NOT received the Covid vaccine. - Social history:: Smoking status: . ROS: 14:06 All other systems are negative. cp Exam: 14:06 Constitutional: The patient appears in no acute distress, alert, awake, comfortable, cp non-toxic, well developed, well nourished. 14:06 Head/face: several small well-healed lacerations noted to scalp. 14:06 Skin: Wound recheck: Staple laceration closure: the wound is healing well, no evidence of dehiscence, no drainage, no erythema, no swelling. Vital Signs: 14:07 BP 141 / 84; Pulse 83; Resp 16; Temp 98.2(O); Pulse Ox 99% on R/A; vg1 MDM: 14:06 Patient medically screened. cp 14:08 Data reviewed: vital signs, nurses notes, old medical records. cp 14:08 Counseling: I had a detailed discussion with the patient and/or guardian regarding: the cp historical points, exam findings, and any diagnostic results supporting the discharge/admit diagnosis, to return to the emergency department if symptoms worsen or persist or if there are any questions or concerns that arise at home. Response to treatment: the patient's symptoms have markedly improved after treatment, and as a result, I will discharge patient. Administered Medications: No medications were administered Disposition: 14:14 Co-signature as Attending Physician, Binu Guallpa MD I agree with the assessment and kdr plan of care. Disposition Summary: 12/05/22 14:08 Discharge Ordered Location: Home cp Problem: new cp Symptoms: have improved cp Condition: Stable cp Diagnosis - Encounter for removal of sutures cp Followup: cp - With: Private Physician - When: 2 - 3 days - Reason: Worsening of condition Discharge Instructions: - Discharge Summary Sheet cp - Suture Removal, Care After cp Forms: - Medication Reconciliation Form cp - Thank You Letter cp - Antibiotic Education cp - Prescription Opioid Use cp Signatures: Binu Guallpa MD MD kdr Michael Verde PA PA cp Garcia, Victoria, RN RN vg1
--- NOTE | 2022-12-05 14:09 | ER ---
Nurse's Notes [facility] Name: Ever Sesay Age: 22 yrs Sex: Male : 2000 Arrival Date: 12/05/2022 Time: 13:37 Bed IW1 Private MD: Diagnosis: Encounter for removal of sutures Presentation: 12/05 13:59 Chief complaint: Patient states: Staple removal from scalp that were placed on vg1 11/28/22. Denies pain. AUGUSTIN Rodriguez in triage to remove antonietta. Coronavirus screen: Vaccine status: Patient reports being unvaccinated. Client denies travel out of the [place] in the last 14 days. Ebola Screen: Patient negative for fever greater than or equal to 101.5 degrees Fahrenheit, and additional compatible Ebola Virus Disease symptoms. Onset of symptoms was November 28, 2022. 13:59 Method Of Arrival: Ambulatory vg1 13:59 Acuity: MIRACLE 5 vg1 14:06 Risk Assessment: Do you want to hurt yourself or someone else? Patient reports no vg1 desire to harm self or others. Triage Assessment: 14:02 General: Appears in no apparent distress. comfortable, Behavior is calm, cooperative. vg1 Pain: Denies pain. Derm: Skin is pink, warm \T\ dry. Historical: - Allergies: 14:02 No Known Allergies; vg1 - Immunization history:: Client reports having NOT received the Covid vaccine. - Social history:: Smoking status: . Screenin:05 [facility] ED Fall Risk Assessment (Adult) History of falling in the last 3 months, vg1 including since admission No falls in past 3 months (0 pts) Confusion or Disorientation No (0 pts) Intoxicated or Sedated No (0 pts) Impaired Gait No (0 pts) Mobility Assist Device Used No (0 pt) Altered Elimination No (0 pt) Score/Fall Risk Level 0 - 2 = Low Risk Oriented to surroundings, Maintained a safe environment, Educated pt \T\ family on fall prevention, incl call for assistance when getting out of bed, Assessed \T\ reinforced patient's understanding of fall precautions. Abuse screen: Denies threats or abuse. Denies injuries from another. Nutritional screening: No deficits noted. Tuberculosis screening: No symptoms or risk factors identified. Vital Signs: 14:07 BP 141 / 84; Pulse 83; Resp 16; Temp 98.2(O); Pulse Ox 99% on R/A; vg1 ED Course: 13:37 Patient arrived in ED. ja2 13:48 Michael Verde PA is PHCP. cp 13:48 Binu Guallpa MD is Attending Physician. cp 14:02 Triage completed. vg1 14:02 Arm band placed on. vg1 14:05 Patient has correct armband on for positive identification. vg1 14:05 No provider procedures requiring assistance completed. Patient did not have IV access vg1 during this emergency room visit. Administered Medications: No medications were administered Medication: 14:06 VIS not applicable for this client. vg1 Outcome: 14:05 Discharged to home ambulatory. vg1 14:05 Condition: good 14:05 Discharge instructions given to patient, Instructed on discharge instructions, wound care, Demonstrated understanding of instructions, follow-up care, wound care. 14:05 No charge visit due to suture removal. 14:08 Discharge ordered by . cp 14:11 Patient left the ED. vg1 Signatures: Michael Verde PA PA cp Garcia, Victoria, RN RN vg1 Britta Holman 2
[2022-12-05 14:15] VITALS: BP 141/84; TEMP 98.2; O2SAT 99
== END 2022-12-05 14:11 | disposition home or self-care (01) ==
LOC: ER 13:35
DX: Z48.02 Encounter for removal of sutures (principal)

== ENCOUNTER 2024-04-10 18:30 | Emergency (ER) | payer SELFPAY ==
--- OUTSIDE RECORDS SUMMARY | 2024-04-10 18:33 | XMS REPORT | Continuity of Care Document ---
Author Name Unknown Address [address] [place] [address] [facility] thconnect Address [address] [facility] [address] [place] [address] Care Team Providers Care Helpdesk Specialist Name Role Phone Hammad LICEA, Justa Primary Care Physician Unavailable CALOS NAIR Attending Clinician Unavailabl e L_Pena Attending Clinician Unavailable Shield Attending Clinician Unavailable Doctor Unassigned, Iron Post Attending Clinician U navailable Steff ESPERANZA, K Jovanna Attending Clinician [phone] Desean US, Yessy Morton Attending Clinician Unavailab le Lab, Adc Fam Pob I Attending Clinician Unavailab Isha Linn Attending Clinician [phone] ISHA GARSIA Attending Clinician Unavailable Lab, Pcp Covid Attending Clinician Unavailable L_Pena Admitting Clinician Unavailable Shield Admitting Clinician Unavailable Payers Payer Name Policy Type Policy Number Effective Date Expirati on Date Source [facility] [id number] 2019 00:00:00 [facility] [id number] Problems Condition Name Condition Details Condition Category Status Onset Date Resolution Date Last Treatment Date Treating Clinician Comments Source No known active problems No known active problems Disease [facility] Allergies, Adverse Reactions, Alerts Allergy Name Allergy Type Status Severity Reaction(s) Onset Date Inactive Date Treating Clinician Comments Source NO KNOWN ALLERGIE S Drug Class Active [facility] Social History Social Habit Start Date Stop Date Quantity Comments Source History of tobacco use Chews Tobacco [facility] Sexual orientation [facility] Exposure to SARS-CoV-2 (event) 2020-12-12 00:00:00 2021-01-11 20:53:00 Not sure [facility] History of Social function 2021-01-11 00:00:00 2021-01-11 00:00:00 [facility] Alcohol intake 2018-03-17 00:00:00 2018-03-17 00:00:00 0 /d [facility] Cigarettes smoked current (pack per day) - Reported 2015-10-30 00:00:00 2015-10-30 00:00:00 [facility] Cigarette pack-years 2015-10-30 00:00:00 2015-10-30 00:00:00 [facility] Tobacco use and exposure 2015-10-30 00:00:00 2015-10-30 00:00:00 User of smokeless tobacco [facility] Sex Assigned At 2000 00:00:00 2000 00:00:00 [facility] Smoking Status Start Date Stop Date Source Never Smoker [facility] Ex-smoker 2015-10-30 00:00:00 2015-10-30 00:00:00 [facility] Medications Ordered Medication Name Filled Medication Name Start Date Stop Date Current Medication? Ordering Clinician Indication Dosage Frequency Signature (SIG) Comments Components Source ketorolac (TORADOL) injection 60 mg 01-12 03:15: 00 01-12 03:15 :00 No 60mg 60 mg, Intramuscu lar, ONCE, 1 dose, 01/11/21 at 2215, EMILEE
Fa culty member approving Restricted medication : Fransisco ARTIS [facility] naproxen (NAPROSYN) 500 mg tablet 01-11 00:00: 00 Yes [id number] 500mg Take 1 tablet by mouth 2 (two) times daily with meals. [facility] acetaminoph en-codeine (TYLENOL-CO DEINE #3) 300-30 mg tablet 01-11 00:00: 00 Yes [id number] 1{tbl} Take 1 tablet by mouth every 4 (four) hours as needed for Pain (scale 7-10). Indication s: acute pain [facility] No known medications No Un antoinette [facility] No known medications No Un antoinette [facility] No known medications No Un antoinette [facility] No known medications No Un antoinette [facility] No known medications No Un antoinette [facility] No known medications No Un antoinette [facility] No known medications [facility] Vital Signs Vital Name Observation Time Observation Value Comments S ource BP Systolic 2022-03-22 00:00:00 120 mm[Hg] [facility] Body Weight 2022-03-22 00:00:00 2857.6 [oz_av] [facility] BP Diastolic 2022-03-22 00:00:00 80 mm[Hg] [facility] Height 2022-03-22 00:00:00 69 [facility]in_i] [facility] BMI (Body Mass Index) 2022-03-22 00:00:00 26.4 kg/m2 [facility] [place] [facility] Body weight 2021-01-12 02:07:00 77.111 kg [facility] Diastolic blood pressure 2021-01-12 01:59:00 80 mm[Hg] [facility] Heart rate 2021-01-12 01:59:00 74 /min [facility] Body temperature 2021-01-12 01:59:00 37.11 Gianna [facility] Respiratory rate 2021-01-12 01:59:00 20 /min [facility] Oxygen saturation in Arterial blood by Pulse oximetry 2021-01-12 01:59:00 98 /min [facility] Systolic blood pressure 2021-01-12 01:59:00 157 mm[Hg] [facility] Procedures Procedure Date / Time Performed Performing Clinician Source AUTHORIZATION FOR RELEASE OF PHI 2022-03-10 05:01:00 Doctor Unassigned, Iron Post [facility] XR ANKLE 3+ VW LEFT 2021-01-12 02:25:54 Fransisco Artis [facility] XR FOOT 3+ VW LEFT 2021-01-12 02:25:54 Fransisco Artis [facility] CONSENT/REFUSAL FOR DIAGNOSIS AND TREATMENT 2021-01-12 01:50:49 Doctor Unassigned, [facility] Post [facility] NOTICE OF PRIVACY PRACTICES 2021-01-12 01:50:39 Doctor Unassigned, [place] Post [facility] PATIENT QUESTIONNAIRE 2020-06-11 05:01:00 Doctor Unassigned, Iron Post [facility] Encounters Start Date/Time End Date/Time Encounter Type Admission Type Attending [facility] Care Facility Care Department Encounter ID Source 2021-08-02 12:07:06 Emergency [facility] [id number] [facility] 2024-04-05 02:08:00 2024-04-05 03:38:00 emergency [facility] [id number] 2024-04-05 02:08:00 2024-04-05 03:38:00 Emergency ER CALOS NAIR [facility] [id number] [facility] 2022-10-19 00:00:00 2022-10-19 00:00:00 Outpatient L_Pena [facility] [id number] [place] Replaced by [facility] 2022-10-05 15:58:52 2022-10-05 15:58:52 Outpatient SFA SFA [id number] Angelo Nash 2022-03-22 09:56:00 2022-03-22 09:56:00 Outpatient Shield [facility] [id number] [facility] 2022-03-22 00:00:2022-03-22 00:00:00 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 [facility] [id number] [facility] 2022-03-10 00:00:00 2022-03-10 00:00:00 Orders Only Doctor Unassigned, Iron Post [facility] [id number] 350.1.13.10 4.2.7.2.686 [id number] [facility] 2021-01-11 21:01:00 2021-01-11 22:50:00 Emergency Fransisco Artis [facility] [id number] 350.1.13.10 4.2.7.2.686 [id number] [facility] 2020-06-11 00:00:00 2020-06-11 00:00:00 Orders Only Doctor Unassigned, Iron Post [facility] [id number] 350.1.13.10 4.2.7.2.686 [id number] [facility] 2020-06-08 00:00:00 2020-06-08 00:00:00 Patient Secure Msg Doctor Unassigned, Iron Post [facility] 1.2840.114 350.1.13.10 4.2.7.2.686 [id number] [facility] 2020-06-05 00:00:00 2020-06-05 00:00:00 Letter (Out) Yessy Anton [facility] [id number] 350.1.13.10 4.2.7.2.686 [id number] [facility] 2020-06-05 00:00:00 2020-06-05 00:00:00 Patient Secure Msg Doctor Unassigned, Iron Post [facility] 1.2840.114 350.1.13.10 4.2.7.2.686 [id number] [facility] 2020-06-03 14:00:17 2020-06-03 14:20:17 Laboratory Only Lab, Adc [facility] Valeria Tico Garsia [facility] [address] 1.114 350.1.13.10 4.2.7.2.686 [id number] [facility] 2020-06-03 14:00:00 2020-06-03 14:00:00 Outpatient R STEPHANIE GARSIATHIA [facility] [id number] [facility] 2020-05-20 00:00:00 2020-05-20 00:00:00 Letter (Out) Yessy Anton [facility] 1..114 350.1.13.10 4.2.7.2.686 [id number] [facility] 2020-05-20 00:00:00 2020-05-20 00:00:00 Patient Secure Msg Doctor Unassigned, Iron Post [facility] 1..114 350.1.13.10 4.2.7.2.686 [id number] [facility] 2020-05-19 09:37:31 2020-05-19 09:57:31 Laboratory Only Lab, [facility] Valeria Tico Garsia [facility] [address] 1.114 350.1.13.10 4.2.7.2.686 [id number] [facility] 2020-05-19 09:40:00 2020-05-19 09:40:00 Outpatient R SUN ISHA [facility] [id number] [facility] 2020-05-19 00:00:00 2020-05-19 00:00:00 Letter (Out) Lab, Gibran [facility] [address] 1.114 350.1.13.10 4.2.7.2.686 [id number] [facility] 2020-04-16 00:00:00 2020-04-16 00:00:00 Patient Secure Msg Doctor Unassigned, Iron Post [facility] [address] 1.114 350.1.13.10 4.2.7.2.686 [id number] [facility] 2020-04-14 14:18:11 2020-04-14 14:38:11 Laboratory Only Lab, Adc Fam Pob I Isha Garsia [facility] [address] .114 350.1.13.10 4.2.7.2.686 [id number] [facility] 2020-04-14 14:20:00 2020-04-14 14:20:00 Outpatient R [facility] [id number] [facility] 2020-04-14 00:00:00 2020-04-14 00:00:00 Letter (Out) Doctor Unassigned, Iron Post [facility] .114 350.1.13.10 4.2.7.2.686 [id number] [facility]
[2024-04-10] MEDS ORDERED: ACETAMINOPHEN 500 MG TAB ONE (18:57)
[2024-04-10 20:58] LABS: Absolute Lymphocytes (CBC) 0.2 K/uL (0.7-4.9); Absolute Monocytes 0.7 K/uL (0.1-1.3); Absolute Neutrophil 4.4 K/uL (1.8-8.0); Basophils % 0.3 % (0-1.3); Hematocrit 40.9 % (39.6-49.0); Hemoglobin 13.6 g/dL (13.6-17.9); Lymphocytes % 3.1 % (15.3-44.8); MCH 29.9 pg (27.0-35.0); MCHC 33.2 g/dL (32.0-36.0); MCV 89.9 fL (80-100); MPV 9.7 fL (7.6-11.3); Monocytes % 12.7 % (3.3-12.3); Neutrophils % 83.9 % (41.7-73.7); Platelets 150 thou/uL (152-406); RBC Red Blood Cell Count 4.54 M/uL (4.33-5.43); Red Cell Distribution Width 12.7 % (12.1-15.2)
[2024-04-10 21:10] LABS: PT Prothrombin Time 13.7 SECONDS (9.4-12.5); PTT, Activated Partial Thromb 30.7 SECONDS (24.3-36.9); Protime INR 1.25
[2024-04-10] MEDS ORDERED: KETOROLAC 30 MG/ML INJ ONE (21:20)
[2024-04-10 21:31] LABS: SARS-CoV-2 Antigen CONTROL BLUE LINE VIS/BG OK; SARS-CoV-2 Antigen Rapid Res Negative (Negative)
[2024-04-10 21:38] LABS: Albumin 4.1 g/dL (3.4-5.0); Albumin/Globulin Ratio 1.3 (1.1-1.8); Anion Gap 8.6 mEq/L (5.0-15.0); Bilirubin Total 0.8 mg/dL (0.2-1.0); Globulin 3.2 g/dL (2.3-3.5); Potassium 3.6 mEq/L (3.5-5.1); Protein, Total 7.3 g/dL (6.4-8.2)
[2024-04-10 21:45] LABS: Specific Gravity > 1.030 (1.005-1.030); Sqamous Epithelial None Seen /HPF (None Seen); Urine Bacteria None Seen /HPF (<20); Urine Bilirubin NEGATIVE (Negative); Urine Blood Negative (Negative); Urine Clarity Clear (Clear); Urine Color Yellow (Yellow); Urine Culture Reflex Order NOT NEEDED; Urine Glucose NEGATIVE (Negative); Urine Ketones 4+ (Over) (Negative); Urine Microscopic Reflex YN ORDER UMIC; Urine Mucus Slight /HPF (None Seen); Urine Nitrite NEGATIVE (Negative); Urine Protein 1+ (Negative); Urine RBC <5 /HPF (None Seen); Urine Urobilinogen 2+ (Normal); Urine WBC <5 /HPF (<5)
[2024-04-10] MEDS ORDERED: NA CHLORIDE 0.9% 1,000 ML ONE (21:58)
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
[2024-04-11 02:08] VITALS: TEMP 98.9
[2024-04-11 02:26] VITALS: BP 115/73; O2SAT 98
== END 2024-04-10 23:07 | disposition home or self-care (01) ==
LOC: ER 18:30
DX: E86.0 Dehydration (principal); B34.9 Viral infection, unspecified; Z11.52 Encounter for screening for COVID-19
CPT/HCPCS: 36415; 80053; 81001; 82550; 83605; 85025; 85610; 85730; 87040; 87804; 87811; 96374; 99284; J7030